=== PATIENT | male | born 1950 | race Caucasian/White ===

== ENCOUNTER 2019-07-14 21:08 | Inpatient (IN) | payer BC ==
[~2019-07-14] VITALS: Ht 170.2 cm; Wt 70.8 kg
--- NOTE | 2019-07-14 21:21 | NUR ---
TECH AT BEDSIDE FOR EKG
--- NOTE | 2019-07-14 21:25 | NUR ---
PT C/C [facility] CP SUNDAY FOLLOWED BY CHEST PRESSURE X3 HOURS, SENT BY TECHNICAL PROJECT LEAD, PT STARTED ELOQUIS [id number] AGO. PT AOX4. NAD NOTED. RESP EVEN AND UNLABORED. PT HAD A "NUCLEAR STRESS TEST" LAST WEEK. PT ON MONITOR IN BED 7. WILL CONTINUE TO MONITOR.
--- NOTE | 2019-07-14 21:46 | NUR ---
BLOOD DRAWN AND GIVEN TO PHLEB
[2019-07-14 21:48] LABS: BASOPHILS % (AUTO) 1.1 % (0.0-2.0); HEMATOCRIT 36 % (39-51); HEMOGLOBIN 11.7 g/dL (13.5-17.5); LYMPHOCYTES # (AUTO) 1.1 /CMM (0.8-4.8); LYMPHOCYTES % (AUTO) 29.7 % (20.0-44.0); MEAN CORPUSCULAR HGB CONC 33 g/dl (31.0-36.0); MEAN CORPUSCULAR VOLUME 82 fL (80-96); MONOCYTES # (AUTO) 0.4 /CMM (0.1-1.30); NEUTROPHILS # (AUTO) 2.1 /CMM (1.8-8.9); NEUTROPHILS % (AUTO) 57.2 % (43.0-81.0); PLATELET COUNT (AUTO) 170 /CMM (150-450); RED BLOOD CELL COUNT(AUTO) 4.34 MIL/uL (4.5-6.0); WHITE BLOOD COUNT (AUTO) 3.7 K/uL (4.3-11.0)
[2019-07-14 21:59] LABS: CALCIUM, SERUM 9.2 mg/dL (8.5-10.1); CHLORIDE 106 mmol/L (98-107); CREATININE 0.9 mg/dL (0.6-1.3); GLUCOSE 82 mg/dL (74-106); POTASSIUM 4.3 mmol/L (3.5-5.1); SODIUM SERUM 142 mmol/L (136-145); UREA NITROGEN, BLOOD 23 mg/dL (7-18)
[2019-07-14 22:12] LABS: CARBON DIOXIDE 29 mmol/L (21-32)
[2019-07-14 22:30] LABS: ALBUMIN 3.7 g/dL (3.4-5.0); BILIRUBIN,DIRECT 0.1 mg/dL (0.0-0.2); BILIRUBIN,TOTAL 0.4 mg/dL (0.2-1.0); TOTAL PROTEIN, SERUM 6.9 g/dL (6.4-8.2)
[2019-07-14] MEDS ORDERED: ASPIRIN 81 MG TAB.CHEW PO ONE (22:30)
[2019-07-14] MEDS ORDERED: NITROGLYCERIN PACKET 1 GM PACKET TD ONE (22:30)
[2019-07-14] MEDS ORDERED: ASPIRIN 81 MG TAB.CHEW ONE (22:52)
[2019-07-14] MEDS ORDERED: NITROGLYCERIN PACKET 1 GM PACKET ONE (22:52)
[2019-07-14] MEDS ORDERED: APIX5TAB PO (23:54)
[2019-07-15] MEDS ORDERED: ACETAMINOPHEN 325 MG TABLET PO PRN (00:30)
[2019-07-15] MEDS ORDERED: ONDANSETRON HCL/PF 4 MG/2 ML VIAL IVP PRN (00:30)
[2019-07-15] MEDS ORDERED: MAGNESIUM HYDROXIDE 30 ML UDC PO PRN (00:30)
[2019-07-15] MEDS ORDERED: HYDROCODONE/APAP 5/325MG 1 EACH TABLET PO PRN (00:30)
[2019-07-15] MEDS ORDERED: Z GUARD REMEDY 2 OZ OINT TP PRN (00:30)
[2019-07-15] MEDS ORDERED: ZOLPIDEM TARTRATE 5 MG TABLET PO PRN (00:30)
[2019-07-15] MEDS ORDERED: MAG HYDROX/AL HYDROX/SIMETH 30 ML UDC PO PRN (00:30)
[2019-07-15 01:00] VITALS: BP 128/86
--- NOTE | 2019-07-15 01:00 | NUR ---
TELE/RN NOTES RECEIVED PT. FROM ER VIA JOSE. PT. IS AWAKE, ALERT AND ORIENTED X4. BREATHING EVEN AND UNLABORED ON ROOM AIR. NO SOB, RESPIRATORY DISTRESS OR COMPLAINTS OF PAIN NOTED AT THIS TIME. NO COMPLAINTS OF CHEST PAIN NOTED AT THIS TIME. ORIENTED PT. TO ROOM. PLACED EXTERNAL CLASSICS PROFESSOR ON PT. CURRENT RHYTHM = AFIB HR 57. PT. WITH RIGHT AC 18 GAUGE IV SALINE LOCK PRESENT, PATENT AND INTACT. BED LOCKED AND IN LOWEST POSITION, SIDE RAILS UP X2, CALL LIGHT WITHIN REACH, WILL CONTINUE TO MONITOR.
--- NOTE | 2019-07-15 02:35 | NUR ---
TELE/RN NOTES CALLED AND NOTIFIED EPIC CALL OUT OPERATOR DR. BARLOW PT. IS AFIB/AFLUTTER ON THE MONITOR AND PT. HEART RATE GOES DOWN TO 37 AT THE LOWEST. PT. ALSO HAS SLIGHT PAUSES NOTED. PT. IS ASYMPTOMATIC WITH NO COMPLAINTS OF CHEST PAIN NOTED AT THIS TIME. PT. STATES HE USED TO BE A RUNNER AND HIS RESTING HEART RATE IS USUALLY AROUND 45. PER DR. BARLOW NO NEW ORDERS, CONTINUE TO MONITOR.
[2019-07-15 04:00] VITALS: BP 98/55
[2019-07-15 04:04] LABS: BASOPHILS % (AUTO) 1.2 % (0.0-2.0); HEMATOCRIT 33 % (39-51); HEMOGLOBIN 10.8 g/dL (13.5-17.5); LYMPHOCYTES % (AUTO) 30.2 % (20.0-44.0); MEAN CORPUSCULAR HGB CONC 33 g/dl (31.0-36.0); MEAN CORPUSCULAR VOLUME 81 fL (80-96); MONOCYTES # (AUTO) 0.4 /CMM (0.1-1.30); MONOCYTES % (AUTO) 12.3 % (2.0-12.0); NEUTROPHILS # (AUTO) 1.9 /CMM (1.8-8.9); NEUTROPHILS % (AUTO) 55.3 % (43.0-81.0); PLATELET COUNT (AUTO) 156 /CMM (150-450); RED BLOOD CELL COUNT(AUTO) 4.03 MIL/uL (4.5-6.0); WHITE BLOOD COUNT (AUTO) 3.5 K/uL (4.3-11.0)
[2019-07-15 04:17] LABS: CALCIUM, SERUM 8.8 mg/dL (8.5-10.1); MAGNESIUM 1.8 mg/dL (1.8-2.4); PHOSPHORUS 3.8 mg/dL (2.5-4.9)
--- NOTE | 2019-07-15 06:46 | NUR ---
TELE/RN NOTES PT. IS LYING IN BED RESTING. BREATHING EVEN AND UNLABORED ON ROOM AIR. NO SOB, RESPIRATORY DISTRESS OR COMPLAINTS OF PAIN NOTED AT THIS TIME. NO COMPLAINTS OF CHEST PAIN NOTED AT THIS TIME. PT. WITH EXTERNAL SQL SERVER DEVELOPER ON PT. CURRENT RHYTHM = AFIB HR 48. PT. WITH RIGHT AC 18 GAUGE IV SALINE LOCK PRESENT, PATENT AND INTACT. ALL PT. NEEDS MET. BED LOCKED AND IN LOWEST POSITION, SIDE RAILS UP X2, CALL LIGHT WITHIN REACH, WILL ENDORSE TO DAYSHIFT NURSE FOR CONTINUITY OF CARE.
--- NOTE | 2019-07-15 07:00 | NUR ---
[employer]CHO[employer] INDUSTRIAL ARTS TEACHER NOTES PATIENT DISCHARGE. PATIENT A/O X4 PATIENT SHOWS NO SIGNS OF DISTRESS, NO ACUTE RESPIRATORY DISTRESS. PATIENT SKIN IS INTACT. BED AT LOWEST POSITION AND LOCKED POSITION. CALL LIGHT WITH IN REACH. SAFETY MAINTAINED .
--- NOTE | 2019-07-15 07:00 | NUR ---
ADJUNCT PHILOSOPHY FACULTY NOTES PT IS LYING IN BED RESTING. BREATHING EVEN AND UNLABORED ON ROOM AIR. NO SOB OR ACUTE RESPIRATORY DISTRESS OR COMPLAINTS OF PAIN NOTED AT THIS TIME. PATIENT HAS NO CHEST PAIN. AND IS ON [employer] SALES CONSULTANT. PATIENT CURRENTLY A FIB IN THE 60'S PATIENT IS A/0 X4 WITH R AC 18G LOCKED , PATENT AND INTACT. PATIENT IS AMBULATORY ALL PATIENT NEEDS MET. BED LOCK AND LOWEST POSITION. SIDE RAILS UP X2 CALL LIGHT WITH IN REACH.
[2019-07-15 08:00] VITALS: BP 102/52
[2019-07-15] MEDS: APIXABAN 5 MG TABLET PO SCH ×3 (09:25→17:05)
[2019-07-15 12:09] VITALS: BP 115/70
--- NOTE | 2019-07-15 12:31 | NUR ---
UTILITY MANAGER NOTES DOCTOR KIRIT INFORMED ABOUT PATIENT . PATIENT STATE HIS ALLERGIC TO SHELLFISH. DOCTOR SAID PROCEED WITH CT ANGIO
[2019-07-15] MEDS ORDERED: methylPREDNISolone SOD SUCC 125 MG/2ML VIAL IV ONE (14:00)
[2019-07-15] MEDS ORDERED: diphenhydrAMINE HCL 50 MG/ML VIAL IV ONE (14:00)
[2019-07-15] MEDS ORDERED: IOHEXOL-350 100 ML VIAL IV ONE (14:13)
[2019-07-15 16:00] VITALS: BP 102/68
== END 2019-07-15 19:15 | disposition home or self-care (01) | DRG 308 ==
LOC: ER 21:15 → TELE1 23:48
PROVIDERS: ADMIT Internal Medicine; ATTEND Internal Medicine
DX: I48.91 Unspecified atrial fibrillation (principal); N17.0 Acute kidney failure with tubular necrosis; D68.59 Other primary thrombophilia; Z79.01 Long term (current) use of anticoagulants; Z88.5 Allergy status to narcotic agent; Z91.013 Allergy to seafood; E78.5 Hyperlipidemia, unspecified; D63.8 Anemia in other chronic diseases classified elsewhere
CPT/HCPCS: 36415; 71045-TC; 75574; 80048-TC; 80061-TC; 80076-TC; 83735-TC; 83880; 84100-TC; 84484-TC; 85025-TC; 85378-TC; 87081-TC; 93307-TC; G0378; J1200; J2930; Q9967